=== PATIENT | male | born 1980 | race Caucasian/White ===

== ENCOUNTER 2023-04-06 05:57 | Day surgery (SDC) | payer OTHER ==
[2023-04-03 11:41] VITALS: BMI 36.9
[2023-04-06] MEDS ORDERED: Vancomycin 1 GM VIAL ONE (06:24)
[2023-04-06] MEDS ORDERED: Fentanyl 250 MCG/5 ML VIAL ONE (06:33)
[2023-04-06 06:43] LABS: #Eosinphils 0.4 thou/uL (0.0-0.7); #Monocytes 0.9 thou/uL (0.11-0.59); #Neutrophils 5.5 thou/uL (1.40-6.50); %Basophils 0.4 % (0.0-1.0); %Eosinophils 3.7 % (0.0-10.0); %Lymphocytes 30.8 % (21.0-51.0); %Monocytes 9.1 % (0.0-10.0); %Neutrophils 55.6 % (42.0-75.0); Hemoglobin 15.2 g/dL (14.0-18.0); Mean Corpuscular HGB CONC 34.6 g/dL (32.0-36.0); Mean Corpuscular Hemoglobin 29.9 pg (27.0-31.0); Mean Corpuscular Volume 86.2 fl (78.0-98.0); Mean Platelet Volume 8.6 fL (7.4-10.4); Platelet Count 269 10x3/uL (130-400); RBC Distribution Width 12.8 % (11.5-14.5); Red Blood Cell (RBC) Count 5.09 mill/uL (4.70-6.10); White Blood Cell (WBC) Count 9.9 10x3/uL (4.8-10.8)
[2023-04-06] MEDS ORDERED: Sodium Chloride 0.9% 100 ML ONE (07:01)
[2023-04-06] MEDS ORDERED: CEFAZOLIN 2 GM VIAL ONE (07:01)
[2023-04-06 07:04] LABS: Anion Gap 11 mmol/L (10-20); BUN (Urea Nitrogen) 12 mg/dL (8.9-20.6); Calc. Creatinine Clearance 180 mL/min (70-130); Carbon Dioxide 27 mmol/L (22-29); Chloride 108 mmol/L (98-107); Estimated GFR 100; Glucose 92 mg/dL (70-105); Potassium 3.7 mmol/L (3.5-5.1); Sodium 142 mmol/L (136-145)
[2023-04-06] MEDS ORDERED: Dexamethasone 20 MG/5 ML VIAL ONE (07:26)
[2023-04-06] MEDS ORDERED: Rocuronium Bromide 10 MG/ML (10ML VIAL) ONE (07:26)
[2023-04-06] MEDS ORDERED: NEOSTIGMINE 3 MG/3 ML SYR 3 MG/3 ML SYRINGE ONE (07:26)
[2023-04-06] MEDS ORDERED: Ketorolac Tromethamine 30 MG/ML VIAL ONE (07:26)
[2023-04-06] MEDS ORDERED: Glycopyrrolate 0.2 MG/ML 5 ML SYRINGE ONE (07:26)
[2023-04-06] MEDS ORDERED: PROPOFOL 200 MG/20 ML VIAL ONE (07:26)
[2023-04-06] MEDS ORDERED: Lidocaine 1% PF 5 ML VIAL ONE (07:26)
[2023-04-06] MEDS ORDERED: PHENYLEPHRINE-NS 100 MCG/ML 10 ML SYRINGE ONE (07:26)
[2023-04-06] MEDS ORDERED: Ondansetron PF 4 MG/2 ML Vial ONE (07:26)
[2023-04-06] MEDS ORDERED: HYDROmorphone 0.5 MG/0.5 ML SYRINGE ONE (08:57)
[2023-04-06] MEDS ORDERED: fentaNYL 50 mcg/mL 1 mL Vial ONE ×3 (09:04→09:21)
[2023-04-06] MEDS ORDERED: Cyclobenzaprine 10 MG TAB ONE (09:28)
[2023-04-06] MEDS ORDERED: HYDROcodone/Acetaminophen 5/325 mg Tablet ONE (10:13)
== END 2023-04-06 11:30 | disposition home or self-care (01) ==
LOC: SDC 05:57
PROVIDERS: ATTEND Neurological Surgery
PROC: 0SG0071 Fusion of Lumbar Vertebral Joint with Autologous Tissue Substitute, Posterior Approach, Posterior Column, Open Approach (ICD-10-PCS; principal; 2023-04-06)
DX: M43.16 Spondylolisthesis, lumbar region (principal)
CPT/HCPCS: 80048; 85025; 93005; 93010; C1713; C1889; J1100; J1170; J1885; J2405; J2704; J3010; J3370; J3490